=== PATIENT | female | born 1995 | race Hispanic/Latino ===

== ENCOUNTER 2024-02-16 14:54 | Emergency (ER) | payer OTHER, SELFPAY ==
[2024-02-16 15:01] VITALS: BP 149/86; PULSE 65; RESP 16; TEMP 37.1; O2SAT 99; BMI 30.2
[2024-02-16] MEDS: MECLIZINE HCL 12.5 MG TABLET 25 MG PO (16:03)
[2024-02-16] MEDS: ONDANSETRON 4 MG ODT SL (16:03)
--- NOTE | 2024-02-16 16:47 | ED_ITS ---
HPI - Dizziness <Carlito Fay PA-C - Last Filed: 02/16/24 17:21> General Chief Complaint: Dizziness Stated Complaint: headache, dizzy Time Seen by Provider: 02/16/24 15:46 Source: patient Mode of arrival: Ambulatory History of Present Illness HPI Narrative: 28-year-old female with past medical history of migraines presents to the ED with 3 days of dizziness, nausea. Patient states that she has had intermittent dizziness which she describes as she is spinning around. Dizziness is worsened with head movement. Patient endorses nausea. Denies fever, chills, rhinorrhea, cough, chest pain, shortness of breath, abdominal pain, syncope. Related Data Previous Rx's Medication Instructions Recorded meclizine 25 mg tablet 25 mg PO TID PRN dizziness #20 tabs 02/16/24 ondansetron 4 mg disintegrating 4 mg PO Q8H PRN nausea and 02/16/24 tablet vomiting #14 tabs Allergies Allergy/AdvReac Type Severity Reaction Status Date / Time No Known Drug Allergies Allergy Verified 02/16/24 15:02 Review of Systems <Carlito Fay PA-C - Last Filed: 02/16/24 17:21> Constitutional Constitutional: Denies chills, Denies fatigue, Denies fever(s), Denies frequent falls, Denies lethargy and Denies weakness Eyes Eyes: Denies change in vision, Denies eye discharge, Denies irritation and Denies loss of vision ENT Ears, Nose, Mouth, and Throat: Denies change in voice, Reports dizziness, Denies neck pain, Denies sore throat and Denies throat swelling Cardiovascular Cardiovascular: Denies chest pain, Denies irregular heart rhythm, Denies lightheadedness, Denies palpitations, Denies dyspnea, Denies dyspnea on exertion and Denies orthopnea Respiratory Respiratory: Denies cough, Denies dyspnea, Denies dyspnea on exertion and Denies wheezing Gastrointestinal Gastrointestinal: Denies abdominal pain, Denies change in bowel habits, Denies diarrhea, Reports nausea and Denies vomiting Musculoskeletal Musculoskeletal: Denies neck pain and Denies numbness Integumentary/Breasts Skin/Breast: Denies pruritus, Denies erythema, Denies rash and Denies wounds Neurologic Neurologic: Denies behavioral changes, Denies confusion, Reports dizziness, Denies frequent falls, Denies loss of vision, Denies numbness and Denies weakness Psychiatric Psychiatric: Denies anxiety, Denies behavioral changes, Denies confusion, Denies depression, Denies homicidal ideation and Denies suicidal ideation Endocrine Endocrine: Denies fatigue, Denies flushing and Denies palpitations Hematologic/Lymphatic Hematologic/Lymphatic: Denies easy bruising Allergic/Immunologic Allergic/Immunologic: Denies urticaria, Denies throat swelling and Denies wheezing Patient History <Carlito Fay PA-C - Last Filed: 02/16/24 17:21> Social History Smoking Status: Never smoker Smoking Status: Never smoker Substance Use Type: does not use Exam <Carlito Fay PA-C - Last Filed: 02/16/24 17:21> Narrative Exam Narrative: Const General:?cooperative, healthy appearing and comfortable HENMA Head:?normal to inspection Ears:?hearing grossly normal bilaterally Nose:?external nose normal Face and sinus:?normal facial exam and sinuses nontender Mouth:?oral mucosae normal Throat:?posterior oropharynx normal Eyes General:?appearance normal, both eyes and all related structures Neck Neck:?normal visual inspection and no lymphadenopathy noted Resp Effort & Inspection:?normal respiratory effort Auscultation:?clear to auscultation bilaterally Cardio Rate:?regular rate Rhythm:?regular rhythm Neuro General:?patient alert, patient awake and patient oriented x3; PERRLA; CN 1 through 12 intact bilaterally; gait is normal Initial Vital Signs Initial Vital Signs: Vital Signs Temperature 98.8 F 02/16/24 15:01 Pulse Rate 65 02/16/24 15:01 Respiratory Rate 16 02/16/24 15:01 Blood Pressure 149/86 H 02/16/24 15:01 Pulse Oximetry 99 02/16/24 15:01 Oxygen Delivery Method Room Air 02/16/24 15:01 <Emilio Valdovinos DO - Last Filed: 02/16/24 17:35> Initial Vital Signs Initial Vital Signs: Vital Signs Temperature 98.8 F 02/16/24 15:01 Pulse Rate 65 02/16/24 15:01 Respiratory Rate 16 02/16/24 15:01 Blood Pressure 149/86 H 02/16/24 15:01 Pulse Oximetry 99 02/16/24 15:01 Oxygen Delivery Method Room Air 02/16/24 15:01 Course <Carlito Fay PA-C - Last Filed: 02/16/24 17:21> Orders Ordered: Discontinued Medications Meclizine HCl (Meclizine Hcl 12.5 Mg Tablet) 25 mg PO NOW ONE Stop: 02/16/24 15:58 Last Admin: 02/16/24 16:03 Dose: 25 mg Documented By: BRANDON Ondansetron HCl (Ondansetron 4 Mg Odt) 4 mg SL NOW ONE Stop: 02/16/24 15:58 Last Admin: 02/16/24 16:03 Dose: 4 mg Documented By: BRANDON Vital Signs Vital signs: Vital Signs - 8 hr 02/16/24 15:01 02/16/24 17:23 Temperature 98.8 F 97.9 F Pulse Rate 65 63 Respiratory Rate 16 16 Blood Pressure 149/86 H 127/60 Pulse Oximetry 99 100 Oxygen Delivery Method Room Air Room Air <Emilio Valdovinos DO - Last Filed: 02/16/24 17:35> Orders Ordered: Discontinued Medications Meclizine HCl (Meclizine Hcl 12.5 Mg Tablet) 25 mg PO NOW ONE Stop: 02/16/24 15:58 Last Admin: 02/16/24 16:03 Dose: 25 mg Documented By: BRANDON Ondansetron HCl (Ondansetron 4 Mg Odt) 4 mg SL NOW ONE Stop: 02/16/24 15:58 Last Admin: 02/16/24 16:03 Dose: 4 mg Documented By: BRANDON Vital Signs Vital signs: Vital Signs - 8 hr 02/16/24 15:01 02/16/24 17:23 Temperature 98.8 F 97.9 F Pulse Rate 65 63 Respiratory Rate 16 16 Blood Pressure 149/86 H 127/60 Pulse Oximetry 99 100 Oxygen Delivery Method Room Air Room Air MDM - Dizziness <Carlito Fay PA-C - Last Filed: 02/16/24 17:21> Lab Data Labs: Point of Care Testing Test Results Negative Urine Dip Bedside Urine Glucose Negative Bedside Urine Bilirubin - Negative Bedside Urine Ketone ++ 40 Urine Specific [place] 1.015 Bedside Urine Occult Blood - Negative Bedside Urine pH 6.5 Bedside Urine Protein - Negative Bedside Urine Urobilinogen - Negative Bedside Urine Nitrite - Negative Bedside Urine Leukocytes - Negative Esterase MDM Narrative Medical decision making narrative: 28-year-old female with past medical history of migraines presents to the ED with 3 days of dizziness, nausea. Patient's presentation is most consistent with BPPV. Will treat with meclizine and Zofran. Will reassess. Will also obtain urine . Urine negative. Urine without infection. Patient's symptoms improved with the meclizine and Zofran. Prescribed meclizine and Zofran. Discussed findings with patient that her symptoms are most consistent with BPPV. Recommend follow-up with PCP and physical therapy for further evaluation and treatment. ED return precautions were discussed with patient. Patient verbalized understanding. Medical records reviewed: Yes <Emilio Valdovinos DO - Last Filed: 02/16/24 17:35> Lab Data Labs: Point of Care Testing Test Results Negative Urine Dip Bedside Urine Glucose Negative Bedside Urine Bilirubin - Negative Bedside Urine Ketone ++ 40 Urine Specific [place] 1.015 Bedside Urine Occult Blood - Negative Bedside Urine pH 6.5 Bedside Urine Protein - Negative Bedside Urine Urobilinogen - Negative Bedside Urine Nitrite - Negative Bedside Urine Leukocytes - Negative Esterase Discharge Plan Departure Patient Disposition: Home Clinical Impression: Benign paroxysmal positional vertigo Qualifiers: Laterality: unspecified laterality Qualified Code(s): H81.10 - Benign paroxysmal vertigo, unspecified ear Instructions: DI for Vertigo Activity Restrictions/Additional Instructions: You were evaluated in the ED today for dizziness and nausea. It appears that you have vertigo which is benign and can be treated with physical therapy, meclizine and Zofran. Your symptoms improved with medications today. You are being prescribed meclizine and Zofran to use at home as needed. Please follow- up with your PCP so you can get referrals to physical therapy. Return to the ED if you have worsening problems, persistent dizziness and nausea despite the medications. Prescriptions: New meclizine 25 mg tablet 25 mg PO TID PRN (Reason: dizziness) Qty: 20 0RF ondansetron 4 mg tablet,disintegrating 4 mg PO Q8H PRN (Reason: nausea and vomiting) Qty: 14 0RF Stand Alone Forms: Patient Portal/API ED Sign-out <Emilio Valdovinos DO - Last Filed: 02/16/24 17:35> Cosign ED Attending Cosignature Attestation: Dr Valdovinos Co-Sign Statement: I was available for consultation during this patient's emergency department visit. This chart is signed by myself for administrative purposes only. I did not have direct contact with this patient during this visit. They were seen independently by the APC.
[2024-02-16 17:23] VITALS: BP 127/60; PULSE 63; RESP 16; TEMP 36.6; O2SAT 100
== END 2024-02-16 17:24 | disposition home or self-care (01) ==
PROVIDERS: Emergency Provider Student in an Organized Health Care Education/Training Program
DX: H81.10 Benign paroxysmal vertigo, unspecified ear (principal)
CPT/HCPCS: 81003; 81025; 99283

== ENCOUNTER 2024-10-04 09:58 | Emergency (ER) | payer OTHER, SELFPAY ==
[2024-10-04 10:17] VITALS: BP 111/54; PULSE 82; RESP 12; TEMP 36.3; O2SAT 100; BMI 28.3
[2024-10-04 11:00] LABS: Urine Volume 10mL (spun)
[2024-10-04 11:03] LABS: Bacteria Urine None Seen; Culture Indicated Urine Cult Not Indicated; RBC Urine 0-1/HPF (0-5/HPF); Squamous Epithelial Cell Urine None Seen (0-5/HPF); WBC Urine 1-5/HPF (0-5/HPF)
--- NOTE | 2024-10-04 12:51 | ED_ITS ---
HPI - Female Genitourinary <Carlito Fay PA-C - Last Filed: 10/04/24 12:55> General Chief complaint: Urogenital-Female Stated complaint: Per patient,Has UTI Time Seen by Provider: 10/04/24 11:21 Source: patient Mode of arrival: Ambulatory History of Present Illness HPI Narrative: 28-year-old female presents to the ED with 1 day of dysuria, frequent urination, flank pain. Patient states that she awoke this morning and experienced dysuria, followed by frequent urination and bilateral flank pain and chills. No fever, nausea, vomiting, abdominal pain. Related Data Previous Rx's Medication Instructions Recorded meclizine 25 mg tablet 25 mg PO TID PRN dizziness #20 tabs 02/16/24 ondansetron 4 mg disintegrating 4 mg PO Q8H PRN nausea and 02/16/24 tablet vomiting #14 tabs cefpodoxime 200 mg tablet 200 mg PO Q12H 10 days #20 tabs 10/04/24 Allergies Allergy/AdvReac Type Severity Reaction Status Date / Time No Known Drug Allergies Allergy Verified 10/04/24 10:19 Review of Systems <Carlito Fay PA-C - Last Filed: 10/04/24 12:55> Constitutional Constitutional: Reports chills, Denies fatigue, Denies fever(s), Denies frequent falls, Denies lethargy and Denies weakness Eyes Eyes: Denies change in vision, Denies eye discharge, Denies irritation and Denies loss of vision ENT Ears, Nose, Mouth, and Throat: Denies change in voice, Denies dizziness, Denies neck pain, Denies sore throat and Denies throat swelling Cardiovascular Cardiovascular: Denies chest pain, Denies irregular heart rhythm, Denies lightheadedness, Denies palpitations, Denies dyspnea, Denies dyspnea on exertion and Denies orthopnea Respiratory Respiratory: Denies cough, Denies dyspnea, Denies dyspnea on exertion and Denies wheezing Gastrointestinal Gastrointestinal: Denies abdominal pain, Denies change in bowel habits, Denies diarrhea, Denies nausea and Denies vomiting Genitourinary Genitourinary: Reports dysuria Comments: Urinary frequency Musculoskeletal Musculoskeletal: Denies neck pain and Denies numbness Integumentary/Breasts Skin/Breast: Denies pruritus, Denies erythema, Denies rash and Denies wounds Neurologic Neurologic: Denies behavioral changes, Denies confusion, Denies dizziness, Denies frequent falls, Denies loss of vision, Denies numbness and Denies weakness Psychiatric Psychiatric: Denies anxiety, Denies behavioral changes, Denies confusion, Denies depression, Denies homicidal ideation and Denies suicidal ideation Endocrine Endocrine: Denies fatigue, Denies flushing and Denies palpitations Hematologic/Lymphatic Hematologic/Lymphatic: Denies easy bruising Allergic/Immunologic Allergic/Immunologic: Denies urticaria, Denies throat swelling and Denies wheezing Exam <Carlito Fay PA-C - Last Filed: 10/04/24 12:55> Narrative Exam Narrative: Const General:?cooperative, healthy appearing and comfortable [facility] Head:?normal to inspection Ears:?hearing grossly normal bilaterally Nose:?external nose normal Face and sinus:?normal facial exam and sinuses nontender Mouth:?oral mucosae normal Throat:?posterior oropharynx normal Eyes General:?appearance normal, both eyes and all related structures Neck Neck:?normal visual inspection and no lymphadenopathy noted Resp Effort & Inspection:?normal respiratory effort Auscultation:?clear to auscultation bilaterally Cardio Rate:?regular rate Rhythm:?regular rhythm GI/ Abdomen is soft, nondistended, nontender to palpation. No CVA tenderness. Neuro General:?patient alert, patient awake and patient oriented x3 Initial Vital Signs Initial Vital Signs: Vital Signs Temperature 97.4 F L 10/04/24 10:17 Pulse Rate 82 10/04/24 10:17 Respiratory Rate 12 10/04/24 10:17 Blood Pressure 111/54 L 10/04/24 10:17 Pulse Oximetry 100 10/04/24 10:17 Oxygen Delivery Method Room Air 10/04/24 10:17 <Anisha Zepeda MD - Last Filed: 10/05/24 08:31> Initial Vital Signs Initial Vital Signs: Vital Signs Temperature 97.4 F L 10/04/24 10:17 Pulse Rate 82 10/04/24 10:17 Respiratory Rate 12 10/04/24 10:17 Blood Pressure 111/54 L 10/04/24 10:17 Pulse Oximetry 100 10/04/24 10:17 Oxygen Delivery Method Room Air 10/04/24 10:17 Course <Carlito Fay PA-C - Last Filed: 10/04/24 12:55> Orders Ordered: ED Orders 10/04/24 10:33 Urine Microscopic Stat Vital Signs Vital signs: Vital Signs - 8 hr 10/04/24 10:17 Temperature 97.4 F L Pulse Rate 82 Respiratory Rate 12 Blood Pressure 111/54 L Pulse Oximetry 100 Oxygen Delivery Method Room Air <Anisha Zepeda MD - Last Filed: 10/05/24 08:31> Orders Ordered: ED Orders 10/04/24 10:33 Urine Microscopic Stat Vital Signs Vital signs: Vital Signs - 8 hr 10/04/24 10:17 Temperature 97.4 F L Pulse Rate 82 Respiratory Rate 12 Blood Pressure 111/54 L Pulse Oximetry 100 Oxygen Delivery Method Room Air MDM - Female Genitourinary <Carlito Fay PA-C - Last Filed: 10/04/24 12:55> Lab Data Labs: Lab Results 10/04/24 Range/Units 10:33 Urine RBC 0-1/hpf (0-5/HPF) Urine WBC 1-5/hpf (0-5/HPF) Ur Squamous Epith Cells None seen (0-5/HPF) Urine Bacteria None seen (None) Ur Culture Indicated? Cult not indicated Vol Urine Centrifuged 10ml (spun) Point of Care Testing Test Results Negative Urine Dip Bedside Urine Glucose Negative Bedside Urine Bilirubin - Negative Bedside Urine Ketone - Negative Urine Specific [place] 1.010 Bedside Urine Occult Blood + Bedside Urine pH 6.0 Bedside Urine Protein - Negative Bedside Urine Urobilinogen - Negative Bedside Urine Nitrite - Negative Bedside Urine Leukocytes - Negative Esterase MDM Narrative Medical decision making narrative: 28-year-old female presents to the ED with 1 day of dysuria, frequent urination, flank pain. Urinalysis was negative for infection. However, given that patient's symptoms just started this morning and she has significant symptoms, will prescribe antibiotics. Advised patient to start taking antibiotics if her symptoms do not improve over the next day or so. ED return precautions were discussed with patient. Patient verbalized understanding. Medical records reviewed: Yes <Anisha Zepeda MD - Last Filed: 10/05/24 08:31> Lab Data Labs: Lab Results 10/04/24 Range/Units 10:33 Urine RBC 0-1/hpf (0-5/HPF) Urine WBC 1-5/hpf (0-5/HPF) Ur Squamous Epith Cells None seen (0-5/HPF) Urine Bacteria None seen (None) Ur Culture Indicated? Cult not indicated Vol Urine Centrifuged 10ml (spun) Point of Care Testing Test Results Negative Urine Dip Bedside Urine Glucose Negative Bedside Urine Bilirubin - Negative Bedside Urine Ketone - Negative Urine Specific [place] 1.010 Bedside Urine Occult Blood + Bedside Urine pH 6.0 Bedside Urine Protein - Negative Bedside Urine Urobilinogen - Negative Bedside Urine Nitrite - Negative Bedside Urine Leukocytes - Negative Esterase Discharge Plan Departure Patient Disposition: Home Clinical Impression: Urinary tract infection Instructions: DI for Urinary Tract Infection (UTI) Activity Restrictions/Additional Instructions: You were evaluated in the ED today for urinary discomfort. Your urine tested negative for a UTI, however since you have significant symptoms that could be a sign of a developing infection, you are being prescribed antibiotics. You may wait for a day or so before you start taking it if your symptoms do not improve. Please continue to drink plenty of water. Return to the ED if you have worsening symptoms. Prescriptions: New cefpodoxime 200 mg tablet 200 mg PO Q12H 10 Days Qty: 20 0RF Rx Instructions: must administer with a meal/food No Action meclizine 25 mg tablet 25 mg PO TID PRN (Reason: dizziness) Qty: 20 0RF ondansetron 4 mg tablet,disintegrating 4 mg PO Q8H PRN (Reason: nausea and vomiting) Qty: 14 0RF Referrals: ProviderRadha [Primary Care Provider] - Stand Alone Forms: Patient Portal/API/Survey ED Sign-out <Anisha Zepeda MD - Last Filed: 10/05/24 08:31> Cosign ED Attending Piyush Attestation: I was immediately available in the department for consultation throughout this patient's visit. Anisha Zepeda MD
== END 2024-10-04 12:15 | disposition home or self-care (01) ==
PROVIDERS: Emergency Medicine; Emergency Provider Student in an Organized Health Care Education/Training Program
DX: N39.0 Urinary tract infection, site not specified (principal)
CPT/HCPCS: 81003; 81015; 81025; 99283